=== PATIENT | male | born 1980 | race Caucasian/White ===

== ENCOUNTER 2019-01-07 07:54 | Emergency (ER) | payer OTHER, BC ==
[~2019-01-07] VITALS: Ht 187.9 cm; Wt 85.1 kg
[2019-01-07] MEDS ORDERED: LIDOCAINE 1% INJ 20 ML 20 ML VIAL ONE (08:24)
[2019-01-07] MEDS ORDERED: LIDOCAINE PF 2% 5 ML (XYLOCAINE) VIAL ONE (08:24)
[2019-01-07] MEDS ORDERED: TETANUS,DIPTH,PERTUSS P/F (BOOSTRIX) 0.5 ML VIAL IM ONE (08:30)
[2019-01-07] MEDS ORDERED: LIDOCAINE 2% 20 ML (XYLOCAINE) VIAL INJ ONE (08:30)
--- NOTE | 2019-01-07 08:32 | ED Upper Extremity ---
General Chief Complaint: Laceration Stated Complaint: LT FINGER LAC Source: patient Exam Limitations: no limitations History of Present Illness Date Seen by Provider: Jan 07, 2019 Time Seen by Provider: 08:20 Initial Comments The pt is a 38 y/o male who presents for evaluation of a left fourth finger injury. He states that he cut his finger caught in a car door and caused a laceration. He states he was unable to get the ring off of his finger and his ring is made of tungsten. He states he is not having very much pain and does not believe that he broke the finger. He is alert and oriented 4, calm, and appears to be in no distress at this time. He is unsure of his tetanus status of this will be updated today. He denies any other complaints at this time. He states that he was almost able to get the ring off but there is a small flap of skin from the laceration which was preventing removal. Onset: just prior to arrival Severity: mild Pain/Injury Location: left 3rd finger Method of Injury: direct blow Allergies and Home Medications Allergies Coded Allergies: No Known Drug Allergies (Unverified , 01/07/19) Patient Home Medication List Home Medication List Reviewed: Yes Review of Systems Constitutional: no symptoms reported EENTM: no symptoms reported Respiratory: no symptoms reported Cardiovascular: no symptoms reported Gastrointestinal: no symptoms reported Genitourinary: no symptoms reported Musculoskeletal: other (left 4rd finger injury) Skin: no symptoms reported Psychiatric/Neurological: No Symptoms Reported All Other Systems Reviewed Negative Unless Noted: Yes Past Ucabbti-Tuukel-Oodpvo Hx Past Med/Social Hx: Reviewed Nursing Past Med/Soc Hx Patient Social History Recent Foreign Travel: No Physical Exam Vital Signs Vital Signs - First Documented 01/07/19 08:00 Temp 36.9 Pulse 83 Resp 18 B/P (MAP) 137/91 (106) Pulse Ox 98 O2 Delivery Room Air Capillary Refill : Height, Weight, BMI Height: '" Weight: lbs. oz. kg; BMI Method: General Appearance: WD/WN, no apparent distress HEENT: PERRL/EOMI, pharynx normal Cardiovascular: regular rate, rhythm, no edema, no murmur Respiratory: chest non-tender, lungs clear, normal breath sounds Hand: laceration (base of left 4th finger) Procedures/Interventions Wound Location: Upper Extremities Other Wound Location left 4th finger Wound Length (cm): 2.5 Wound's Depth, Shape: irregular Wound Explored: contaminated Irrigated w/ Saline (ccs): 1000 Anesthesia: 1% Lidocaine Volume Anesthetic (ccs): 2 Suture: Ethlion Suture Size: 4-0 Number of Sutures: 4 Layer Closure?: 1 Number Deep Layer Sutures: 0 Sterile Dressing Applied?: Yes Progress/Results/Core Measures Results/Orders My Orders Orders - TALYA LYONS DO Lidocaine 2% Injection 20 Ml (Xylocaine (01/07/19 08:30) Dipht,Pertuss(Acell),Tet Adult (Boostrix (01/07/19 08:30) Lidocaine 2% Pf 5 Ml (Xylocaine 2% Pf) (01/07/19 08:24) Lidocaine 1% Inj 20 Ml (Xylocaine 1% Inj (01/07/19 08:24) Vital Signs/I&O 01/07/19 08:00 Temp 36.9 Pulse 83 Resp 18 B/P (MAP) 137/91 (106) Pulse Ox 98 O2 Delivery Room Air Progress Progress Note : Progress Note @0935 - the patient's tungsten ring was very difficult to remove. Using a finger tourniquet as well as some rapped suture and soap the ring was eventually able to be removed and the laceration was repaired with nylon sutures. The patient tolerated the procedure very well. He is moving the finger and full range of motion and does not want to have an x-ray performed. His tetanus has been updated. He will go home with a prescription for Keflex and Nazareth. Advised return in 7-10 days for suture removal or return to the emergency Department immediately for new or worsening symptoms. Departure Impression Primary Impression: Finger laceration Additional Impression: Tight ring on finger Disposition: 01 HOME, SELF-CARE Condition: Stable Departure-Patient Inst. Decision time for Depature: 09:45 Referrals: NO,LOCAL PHYSICIAN (PCP/Family) Primary Care Physician Patient Instructions: SKIN AVULSION, Laceration Repair, Diphtheria and Tetanus Toxoids Add. Discharge Instructions: Return to the emergency department or your doctor's office in 7-10 days for suture removal. Take the prescribed medicine instructed. Keep the wound clean and dry until fully healed. Scripts Hydrocodone/Acetaminophen (Nazareth 5-325 Tablet) 1 Each Tablet 1 TAB PO Q4-6HR for Pain MDD 10 TABS for 5 Days, #15 TAB Prov: TALYA LYONS DO 01/07/19 Cephalexin (Keflex) 500 Mg Capsule 500 MG PO TID for 7 Days, #21 CAP Prov: TALYA LYONS DO 01/07/19 Work/School Note: Work Release Form Date Seen in the Emergency Department: Jan 07, 2019 Return to Work: Jan 09, 2019 TALYA LYONS DO Jan 07, 2019 08:32
[2019-01-07] MEDS ORDERED: HYDR-4226 PO (09:52)
[2019-01-07] MEDS ORDERED: CEPH-507 PO (09:52)
[2019-01-07 10:10] VITALS: BP 137/91
== END 2019-01-07 10:10 | disposition home or self-care (01) ==
LOC: ER FS 07:57
DX: S61.215A Laceration without foreign body of left ring finger without damage to nail, initial encounter (principal); S60.445A External constriction of left ring finger, initial encounter; Z23 Encounter for immunization; W23.1XXA Caught, crushed, jammed, or pinched between stationary objects, initial encounter; W49.04XA Ring or other jewelry causing external constriction, initial encounter
CPT/HCPCS: 12001; 90471; 90715